=== PATIENT | female | born 1950 | race Caucasian/White ===

== ENCOUNTER → 2017-06-03 | Outpatient (CLI) | payer MEDICARE, OTHER ==
[~2017-06-03] MED LIST: CLARITIN10 M3 PO; LEVOTHYROXINE75 MCG PO; LEXAPRO PO; PREDNISONE PO; PRINIVIL10 MG PO; SYNTHROID PO
--- NOTE | ~2017-06-03 | MY26 ---
[facility] A Service of [facility] RADIOLOGY TEXT RESULTS PATIENT: HARIKA STERLING LOCATION: [facility] : 48 UNIT #: [id number] AGE: [address]: Irene Montalvo MD SEX: F ORDER DR: [id number] [facility] [address] [place], [place] [address] [id number] O MR#: [id number] Acc #: [id number] NAME: HARIKA STERLING : 1950 SEX: F STUDY DATE/TIME: 06/03/2017 13:48 UNIT: [facility] ROOM: STUDY DESCRIPTION: [facility] DIAGNOSTIC W/ CAD BILAT Attending Physician: Irene Montalvo M.D. Ordering Physician: Irene Montalvo M.D. Primary Care Physician: Irene Montalvo M.D. MEDICAL IMAGING REPORT This report is preliminary unless electronic signature is present EXAM Bilateral digital diagnostic mammogram with CAD device, 06/03/2017. HISTORY Left breast carcinoma status post lumpectomy in 2009 and radiation therapy follow up. FINDINGS Bilateral digital diagnostic mammogram was performed in craniocaudal, mediolateral, oblique and mediolateral projections demonstrating moderate somewhat nodular fibroglandular tissue which is unchanged compared with 09/26/2015. There is stable architectural distortion in the upper-outer quadrant of the left breast from prior lumpectomy and radiation therapy. Stable benign calcifications bilaterally. There is no suspicious mass or cluster of microcalcifications. The films have been reviewed by an FDA-approved CAD device. IMPRESSION Stable benign findings compared with 06/03 17. No mammographic evidence of malignancy. Annual mammogram is recommended. Patients over the age of 40 are entered into a reminder system with target due date for the next mammogram. A result letter will also be sent to the patient. BIRADS: 2 Benign findings. Dictated by... David Espinoza M.D. THIS IS AN ELECTRONICALLY VERIFIED REPORT David Espinoza M.D. at 06/06/2017 10:14 AM [facility] A Service of [facility] RADIOLOGY TEXT RESULTS PATIENT: HARIKA STERLING LOCATION: [facility] #: [id number] : [birth year] UNIT #: [id number] AGE: [address]: Irene Montalvo MD SEX: F ORDER DR: Altagracia TD: 06/03/2017 18:17 JOB #: [id number] MEDICAL IMAGING REPORT Page 1 of 1 COPY
--- NOTE | ~2017-06-03 | BD1 ---
[facility] A Service of [facility] RADIOLOGY TEXT RESULTS PATIENT: HARIKA STERLING LOCATION: [facility] : 48 UNIT #: [id number] AGE: [address]: Irene Montalvo MD SEX: F ORDER DR: [id number] [facility] [address] [place], [place] [address] [id number] O MR#: [id number] Acc #: [id number] NAME: HARIKA STERLING : 1950 SEX: F STUDY DATE/TIME: 06/03/2017 13:56 UNIT: [facility] ROOM: STUDY DESCRIPTION: BD Dexa Bone Dens 1+ Site Attending Physician: Irene Montalvo M.D. Ordering Physician: Irene Montalvo M.D. Primary Care Physician: Irene Montalvo M.D. MEDICAL IMAGING REPORT This report is preliminary unless electronic signature is present EXAM DXA scan, 06/03/2017. HISTORY Status post menopause with no hormone replacement therapy. Osteopenia. Breast carcinoma and radiation therapy. Arthritis. Hypertension with blood pressure medication for 15 years. Thyroid medication Synthroid use for 10 years. Fracture of right wrist in the last 10 years. FINDINGS Bone mineral density in the lumbar spine from L1-L4 is 0.974 g/cm2 which is 0.7 standard deviations below the mean when compared to the young adult reference population which is within the range of normal. This is 1.3 standard deviations above the mean when compared to the age-matched population. Bone mineral density in the left femoral neck was 0.674 g/cm2 which is 1.6 standard deviations below the mean when compared to the young adult reference population which is characteristic of osteopenia. This is 0.1 standard deviations above the mean when compared to the age-matched population. IMPRESSION Bone mineral density in the lumbar spine within the range of normal and within the left hip characteristic of osteopenia. Dictated by... David Espinoza M.D. THIS IS AN ELECTRONICALLY VERIFIED REPORT David Espinoza M.D. at 06/03/2017 5:07 PM [facility] A Service of [facility] RADIOLOGY TEXT RESULTS PATIENT: HARIKA STERLING LOCATION: [facility] : 48 UNIT #: [id number] AGE: [address]: Irene Montalvo MD SEX: F ORDER DR: Mandeep TD: 06/03/2017 17:02 JOB #: [id number] MEDICAL IMAGING REPORT Page 1 of 1 COPY
== END | disposition home or self-care (01) ==
LOC: CWCC 06-02 14:30 → CMAM 06-02 15:00
DX: Z13.820 Encounter for screening for osteoporosis (principal); R92.8 Other abnormal and inconclusive findings on diagnostic imaging of breast; Z78.0 Asymptomatic menopausal state; Z85.3 Personal history of malignant neoplasm of breast
CPT/HCPCS: 77080; G0204

== ENCOUNTER 2017-07-04 06:11 | Emergency (ER) | payer MEDICARE, OTHER ==
[~2017-07-04] VITALS: Ht 162.6 cm; Wt 61.2 kg
--- NOTE | ~2017-07-04 | CT71 ---
[facility] A Service of [facility] RADIOLOGY TEXT RESULTS PATIENT: HARIKA STERLING LOCATION: [facility] : 48 UNIT #: [id number] AGE: [address]: Wilver Duncan MD SEX: F ORDER DR: [id number] [facility] [address] [place], [place] [address] [id number] E MR#: [id number] Acc #: [id number] NAME: HARIKA STERLING : 1950 SEX: F STUDY DATE/TIME: 07/04/2017 8:35 UNIT: [facility] ROOM: STUDY DESCRIPTION: CT Head Wo Contrast Attending Physician: Wilver Duncan M.D. Ordering Physician: Wilver Duncan M.D. Primary Care Physician: Irene Montalvo M.D. MEDICAL IMAGING REPORT This report is preliminary unless electronic signature is present EXAM CT head, 07/04/2017. HISTORY Headache, nausea since yesterday. TECHNIQUE CT head performed skull base through vertex without intravenous contrast. This CT exam was performed with one or more of the following radiation dose reduction techniques: automatic exposure control, adjustment of mA and/or kV according to patient size, and iterative reconstruction. COMPARISON STUDIES No comparisons. FINDINGS The brainstem is unremarkable. Cerebellum and cerebral hemispheres show normal nuñez matter-white matter differentiation. No hemorrhage. No evidence of acute cortical ischemia. There are some mild periventricular and deep white matter tract hypodensities likely reflecting sequelae of chromic microvascular ischemia. The midline structures are nondisplaced. Basal ganglia show no acute abnormality. The ventricles, cisterns, and sulci are normal in size and contour for a patient of this age. There are scattered cavernous carotid arterial calcifications. The intraorbital soft tissues are unremarkable. The visualized paranasal sinuses and mastoid air cells are clear. There is no intra or extraaxial mass effect or abnormal intracranial fluid collection. IMPRESSION 1. No acute abnormality in brain. If patient has ongoing neurologic symptoms, consider followup imaging, preferably with MRI if the [facility] A Service of [facility] RADIOLOGY TEXT RESULTS PATIENT: HARIKA STERLING [id number] : 48 UNIT #: [id number] AGE: [address]: Wilver Duncan MD SEX: F ORDER DR: patient is a candidate. 2. There are some very mild patchy periventricular and deep white matter tract probable sequelae of chronic microvascular ischemia. 3. Some scattered cavernous carotid arterial calcifications. Dictated by... Maximus Zhang M.D. THIS IS AN ELECTRONICALLY VERIFIED REPORT Maximus Zhang M.D. at 07/04/2017 5:45 PM PIPO/sissy TD: 07/04/2017 12:20 JOB #: [id number] MEDICAL IMAGING REPORT Page 1 of 1 COPY
[2017-07-04 06:59] LABS: BASOPHIL# 0.1 X10e3 (0-0.3); BASOPHIL% 0.5 % (0-2.5); EOSINOPHIL# 0.1 X10e3 (0-0.7); EOSINOPHIL% 0.6 % (0.0-7.0); HEMATOCRIT 36.5 % (35.0-45.0); HEMOGLOBIN 12.7 gm/dL (12.0-16.0); LYMPHOCYTE# 2.2 X10e3 (1.0-3.5); MEAN CELL VOLUME 81.3 FL (83-96); MEAN CORPUSCULAR HEMOGLOBIN 28.3 PG (28-34); MEAN CORPUSCULAR HGB CONC 34.8 g/dL (30-36); MEAN PLATELET VOLUME 7.5 FL (6.5-11.5); MONOCYTE# 0.8 X10e3 (0-1.0); MONOCYTE% 5.6 % (3.0-12.0); NEUTROPHIL# 10.7 X10e3 (1.5-7.1); NEUTROPHIL% 77.3 % (40-75); PLATELET COUNT 343 X10e3 (140-420); RED CELL DISTRIBUTION WIDTH 12.5 % (11.0-15.5); WHITE BLOOD COUNT 13.8 X10e3 (4.0-10.5)
[2017-07-04 07:10] LABS: DIFF IND NO
[2017-07-04 07:29] LABS: BUN/CREATININE RATIO 18.33; CALCIUM SERUM 9.2 mg/dL (8.4-10.2); CREATININE SERUM 0.6 mg/dL (0.6-1.4); GLOM FILT RATE Estimated 93.7 mL/min (>60); POTASSIUM 3.3 mmol/L (3.5-5.1)
[2017-07-04 08:32] LABS: URINE SOURCE CLEAN CATCH
[2017-07-04 08:42] LABS: URINE APPEARANCE CLEAR; URINE BILIRUBIN NEG (NEG); URINE BLOOD TRACE (NEG); URINE COLOR YELLOW; URINE GLUCOSE NEG (NEG); URINE KETONE NEG (NEG); URINE LEUKOCYTE ESTERASE NEG (NEG); URINE NITRATE NEG (NEG); URINE PROTEIN NEG (NEG); URINE SPECIFIC GRAVITY 1.009 (1.003-1.035); URINE UROBILINOGEN 0.2 MG/DL (NEG)
[2017-07-04 08:43] LABS: U HYALINE CASTS AUWI 0-2 /[LPF]; URINE BACTERIA AUWI NEG (NEGATIVE); URINE SQUAMOUS EPITHELIAL CELL NONE SEEN /[HPF]; UWBCS1 AUWI 0-2 (0-5)
[2017-07-04 08:47] LABS: CULTURE INDICATED? NO
== END 2017-07-04 09:46 | disposition home or self-care (01) ==
LOC: CED 06:11
PROVIDERS: Emergency Medicine
DX: R51 Headache (principal); Z79.899 Other long term (current) drug therapy
CPT/HCPCS: 36415; 70450; 80048; 81003; 85025; 96361; 96374; 96375; 99284; J1200; J1885; J2765